=== PATIENT | male | born 1975 | race American Indian/Alaskan Native ===

== ENCOUNTER 2020-06-21 11:40 | Outpatient (CLI) | payer BC, MEDICAID, SELFPAY ==
--- NOTE | 2020-06-21 12:27 | XR_ITS ---
WS: [id number] Lumbar spine, 3 views, 06/21/2020 Clinical Data: FALL 2WKS AGO W/PAIN ALONG SPINE HIPS Comparison: None. Findings: No subluxation is seen. There is a sclerotic line at the superior aspect of the L3 vertebral body wh ich could indicate minimal bony injury. Vertebral body height has been maintained. No disc space narr owing is seen. The transverse processes and SI joints are normal. Minimal osteoarthritic spurring of all lumbar vertebral bodies is seen. XR/XR lumbar spine 2-3V* [id number] Impression: 1. Small sclerotic line at the superior aspect of L3 which could indicate a min imal cortical injury. 2. Mild osteoarthritis of all the lumbar vertebral bodies.
--- NOTE | 2020-06-21 12:27 | XR_ITS ---
WS: [id number] Thoracic spine, 3 views, 06/21/2020 Clinical Data: FALL 2 WEEKS AGO W PAIN ALONG SPINE HIPS Comparison: None. Findings: No compression fractures are seen. The disc heights are normal. Minimal osteoarthritic spurring of all the thoracic vertebral bodies seen. The paravertebral areas ar e normal. XR/XR thoracic spine 2V [id number] Impression: Minimal osteoarthritis.
--- NOTE | 2020-06-21 12:27 | XR_ITS ---
WS: [id number] Cervical spine, 3 views, 06/21/2020 Clinical Data: FALL 2 WKS AGO W/PAIN ALONG SPINE HIPS Comparison: None. Findings: No compression fractures are seen. There is spurring at C5 and C6. There is disc space carlos alberto rowing at C5-C6 and C6-C7. There is no prevertebral soft tissue swelling. The odontoid is unremarkabl e. The soft tissues of the neck and the lung apices are normal. XR/XR cervical spine 3V* [id number] Impression: Moderate osteoarthritis at C5-C6 with disc space narrowing at C5-C6 and C6-C7.
--- NOTE | 2020-06-21 12:27 | XR_ITS ---
WS: [id number] Bilateral hips, AP and frog leg, 06/21/2020 Clinical Data: FALL 2 WKS AGO W/PAIN ALONG SPINE HIPS Comparison: None. Findings: Right hip: There are no fractures or dislocations. The joint space is normal. No erosion, sclerosis or narrowing is seen. The right pelvis is unremarkable. Left hip: There are no fractures or dislocations. The joint spaces normal. No erosion, sclerosis or narrowing i s seen. The left pelvis is unremarkable. XR/XR hip BI 3-4V wo/w pel [id number] Impression: Negative bilateral hips.
== END 2020-06-21 11:41 | disposition home or self-care (01) ==
PROVIDERS: Visit Provider Internal Medicine
DX: M25.551 Pain in right hip (principal); M25.552 Pain in left hip; W19.XXXA Unspecified fall, initial encounter; M47.816 Spondylosis without myelopathy or radiculopathy, lumbar region; M47.814 Spondylosis without myelopathy or radiculopathy, thoracic region; M47.812 Spondylosis without myelopathy or radiculopathy, cervical region
CPT/HCPCS: 72040; 72070; 72100; 73503; 73522